=== PATIENT | female | born 1950 | race African-American/Black ===

== ENCOUNTER 2022-08-29 12:12 | Outpatient (CLI) | payer OTHER ==
[2022-08-29 15:31] LABS: Hemoglobin 13.5 g/dL (12.0-15.5); Mean Corpuscular HGB CONC 32.9 g/dL (32.0-36.0); Mean Corpuscular Hemoglobin 32.5 pg (27.0-33.0); Mean Corpuscular Volume 98.6 fl (81.6-98.3); Mean Platelet Volume 11.3 fl (7.4-10.4); Platelet Count 226 10x3/uL (150-450); RBC Distribution Width 12.5 % (11.5-14.5); Red Blood Cell (RBC) Count 4.16 10x6/uL (3.90-5.03); White Blood Cell (WBC) Count 6.6 10x3/uL (3.5-10.5)
[2022-08-29 15:51] LABS: Anion Gap 15 mmol/L (10-20); BUN (Urea Nitrogen) 20 mg/dL (9.8-20.1); Calc. Creatinine Clearance 0 mL/min (70-130); Calcium 9.6 mg/dL (7.8-10.44); Carbon Dioxide 26 mmol/L (23-31); Chloride 105 mmol/L (98-107); Estimated GFR 89; Glucose 83 mg/dL (83-110); Potassium 4.6 mmol/L (3.5-5.1); Sodium 141 mmol/L (136-145)
== END 2022-08-29 12:13 | disposition home or self-care (01) ==
LOC: LABBT 12:12
PROVIDERS: ATTEND Neurological Surgery
DX: Z01.818 Encounter for other preprocedural examination (principal); D49.2 Neoplasm of unspecified behavior of bone, soft tissue, and skin
CPT/HCPCS: 80048; 85027; 93005; 93010

== ENCOUNTER 2022-08-29 13:45 | Inpatient (IN) | payer OTHER ==
[2022-09-05] MEDS ORDERED: fentaNYL PF 100 MCG/2 ML SYRINGE ONE (06:40)
[2022-09-05] MEDS ORDERED: Sodium Chloride 0.9% 100 ML ONE (06:41)
[2022-09-05] MEDS ORDERED: CEFAZOLIN 2 GM VIAL ONE (06:41)
[2022-09-05] MEDS ORDERED: Bacitracin Zinc Ointment 30 gm TUBE ONE (06:51)
[2022-09-05] MEDS ORDERED: Vancomycin 1 GM VIAL ONE (06:51)
[2022-09-05] MEDS ORDERED: Ondansetron PF 4 MG/2 ML Vial ONE (07:33)
[2022-09-05] MEDS ORDERED: Rocuronium Bromide 10 MG/ML (10ML VIAL) ONE (07:33)
[2022-09-05] MEDS ORDERED: PROPOFOL 200 MG/20 ML VIAL ONE (07:33)
[2022-09-05] MEDS ORDERED: PHENYLEPHRINE-NS 100 MCG/ML 10 ML SYRINGE ONE (07:33)
[2022-09-05] MEDS ORDERED: Lidocaine 1% PF 5 ML VIAL ONE (07:33)
[2022-09-05] MEDS ORDERED: Dexamethasone 20 MG/5 ML VIAL ONE (07:33)
[2022-09-05] MEDS ORDERED: Phenylephrine 10 MG/ML VIAL ONE (08:51)
[2022-09-05] MEDS ORDERED: SUGAMMADEX SODIUM 200 MG/2 ML VIAL ONE (09:51)
[2022-09-05] MEDS ORDERED: HYDROcodone/Acetaminophen 10/325 mg Tablet PO PRN (10:36)
[2022-09-05] MEDS ORDERED: diphenhydrAMINE 50 MG CAP PO PRN (10:37)
[2022-09-05] MEDS ORDERED: Mag-Al 1200 mg/1200 mg/30 ML UDCUP PO PRN (10:37)
[2022-09-05] MEDS ORDERED: Morphine 2 MG/ML VIAL SLOW IVP PRN (10:37)
[2022-09-05] MEDS ORDERED: Ondansetron HCl/PF 4 MG/2 ML Vial IVP PRN (10:37)
[2022-09-05] MEDS ORDERED: Ondansetron PF 4 MG/2 ML Vial IVP PRN ×2 (10:37→15:05)
[2022-09-05] MEDS ORDERED: Acetaminophen 325 MG TAB PO PRN (10:37)
[2022-09-05] MEDS ORDERED: Promethazine HCl 25 MG/ML VIAL IM PRN (10:37)
[2022-09-05] MEDS ORDERED: hydrALAZINE 20 MG/ML VIAL ONE (12:24)
[2022-09-05] MEDS: hydrALAZINE 20 MG/ML VIAL SLOW IVP PRN (12:28)
[2022-09-05] MEDS ORDERED: Labetalol HCl 100 MG/20 ML VIAL ONE (13:07)
[2022-09-05] MEDS: Labetalol HCl 100 MG/20 ML VIAL SLOW IVP PRN (13:10)
[2022-09-05] MEDS: tiZANidine HCl 4 MG TAB PO SCH ×4 (13:50→23:58)
[2022-09-05] MEDS: Sodium Chloride 0.9% 1,000 ML IV SCH (13:50)
[2022-09-05] MEDS: CEFAZOLIN 2 GM in Sodium Chloride 0.9% 100 ML IVPB SCH ×2 (14:03→21:44)
[2022-09-05] MEDS ORDERED: Promethazine HCl 12.5 MG in Sodium Chloride 0.9% 50 ML IVPB PRN (15:05)
[2022-09-05] MEDS ORDERED: Electrolyte Replacement Protocol FS SCH (15:45)
[2022-09-05] MEDS ORDERED: Electrolyte Replacement Protocol FS PRN (16:30)
[2022-09-05] MEDS ORDERED: Carvedilol 6.25 MG TAB PO SCH ×3 (17:00→19:15)
[2022-09-05] MEDS ORDERED: Potassium Chloride 20 MEQ TAB PO SCH (17:00)
[2022-09-05] MEDS ORDERED: Metoprolol Tartrate 5 MG/5 ML VIAL IVP SCH ×2 (19:00→21:15)
[2022-09-05] MEDS: Carvedilol 6.25 MG TAB PO SCH ×2 (19:31→19:33)
[2022-09-05] MEDS: Famotidine/PF 20 mg/2ml Vial SLOW IVP SCH (20:00)
[2022-09-05] MEDS: Multivit, Therapeutic 1 TAB PO SCH (20:00)
[2022-09-05] MEDS: Folic Acid 1 MG TAB PO SCH (20:00)
[2022-09-05] MEDS: Thiamine 100 MG TAB PO SCH (20:01)
[2022-09-05 20:12] LABS: #Lymphocytes 0.8 thou/uL (1.20-3.40); #Monocytes 0.9 thou/uL (0.11-0.59); #Neutrophils 13.4 thou/uL (1.40-6.50); %Eosinophils 0.1 % (0.0-10.0); %Monocytes 5.9 % (0.0-10.0); %Neutrophils 89.1 % (42.0-75.0); Hemoglobin 11.7 g/dL (12.0-16.0); Mean Corpuscular HGB CONC 35.4 g/dL (32.0-36.0); Mean Corpuscular Hemoglobin 35.2 pg (27.0-31.0); Mean Corpuscular Volume 99.6 fl (78.0-98.0); Mean Platelet Volume 9.2 fL (7.4-10.4); Platelet Count 183 10x3/uL (130-400); RBC Distribution Width 11.7 % (11.5-14.5); Red Blood Cell (RBC) Count 3.33 mill/uL (4.20-5.40)
[2022-09-05] MEDS: HYDROcodone/Acetaminophen 10/325 mg Tablet PO PRN (20:13)
[2022-09-05 20:34] LABS: Anion Gap 15 mmol/L (10-20); BUN (Urea Nitrogen) 14 mg/dL (9.8-20.1); Calc. Creatinine Clearance 57 mL/min (70-130); Calcium 8.5 mg/dL (7.8-10.44); Carbon Dioxide 20 mmol/L (23-31); Chloride 108 mmol/L (98-107); Estimated GFR 93; Glucose 111 mg/dL (83-110); Magnesium 1.7 mg/dL (1.6-2.6); Potassium 3.8 mmol/L (3.5-5.1); Sodium 139 mmol/L (136-145)
[2022-09-05] MEDS ORDERED: Lisinopril 20 MG TAB PO SCH (21:00)
[2022-09-06] MEDS: Sodium Chloride 0.9% 1,000 ML IV SCH ×2 (01:20→14:34)
[2022-09-06] MEDS: HYDROcodone/Acetaminophen 10/325 mg Tablet PO PRN ×3 (03:47→19:34)
[2022-09-06 04:15] LABS: #Lymphocytes 1.4 thou/uL (1.20-3.40); #Monocytes 1.9 thou/uL (0.11-0.59); #Neutrophils 9.9 thou/uL (1.40-6.50); %Basophils 0.3 % (0.0-1.0); %Eosinophils 0.1 % (0.0-10.0); %Lymphocytes 10.4 % (21.0-51.0); %Monocytes 14.6 % (0.0-10.0); %Neutrophils 74.6 % (42.0-75.0); Hemoglobin 12.1 g/dL (12.0-16.0); Mean Corpuscular HGB CONC 34.8 g/dL (32.0-36.0); Mean Corpuscular Hemoglobin 34.9 pg (27.0-31.0); Platelet Count 156 10x3/uL (130-400); RBC Distribution Width 11.8 % (11.5-14.5); Red Blood Cell (RBC) Count 3.46 mill/uL (4.20-5.40); White Blood Cell (WBC) Count 13.3 10x3/uL (4.8-10.8)
[2022-09-06 04:40] LABS: Anion Gap 14 mmol/L (10-20); BUN (Urea Nitrogen) 12 mg/dL (9.8-20.1); Calc. Creatinine Clearance 59 mL/min (70-130); Calcium 8.4 mg/dL (7.8-10.44); Carbon Dioxide 19 mmol/L (23-31); Chloride 109 mmol/L (98-107); Estimated GFR 94; Glucose 90 mg/dL (83-110); Magnesium 1.8 mg/dL (1.6-2.6); Potassium 3.7 mmol/L (3.5-5.1); Sodium 138 mmol/L (136-145)
[2022-09-06] MEDS: CEFAZOLIN 2 GM in Sodium Chloride 0.9% 100 ML IVPB SCH (05:22)
[2022-09-06] MEDS: Labetalol HCl 100 MG/20 ML VIAL SLOW IVP PRN (05:22)
[2022-09-06] MEDS: tiZANidine HCl 4 MG TAB PO SCH ×4 (05:24→19:38)
[2022-09-06] MEDS ORDERED: Magnesium 2 GM/50 ML(in water) 2 GM in Premix Bag 1 BAG IVPB SCH (05:45)
[2022-09-06] MEDS: Famotidine/PF 20 mg/2ml Vial SLOW IVP SCH ×2 (08:56→20:34)
[2022-09-06] MEDS: Furosemide 20 MG TAB PO SCH (08:57)
[2022-09-06] MEDS: Carvedilol 6.25 MG TAB PO SCH ×3 (08:57→20:34)
[2022-09-06] MEDS: Spironolactone 25 MG TAB PO SCH (08:57)
[2022-09-06] MEDS ORDERED: Lisinopril 20 MG TAB PO SCH ×2 (09:00)
[2022-09-06 14:34] VITALS: BMI 18.6
[2022-09-06] MEDS: Cyanocobalamin (Vitamin B-12) 1,000 MCG TAB PO SCH ×2 (20:34→21:17)
[2022-09-06] MEDS: Folic Acid 1 MG TAB PO SCH ×2 (20:34→21:17)
[2022-09-06] MEDS: Thiamine 100 MG TAB PO SCH ×2 (20:37→21:18)
[2022-09-06] MEDS: Multivit, Therapeutic 1 TAB PO SCH ×2 (20:37→21:17)
[2022-09-07] MEDS: tiZANidine HCl 4 MG TAB PO SCH ×3 (00:03→11:54)
[2022-09-07] MEDS: Sodium Chloride 0.9% 1,000 ML IV SCH (05:56)
[2022-09-07] MEDS: Thiamine 100 MG TAB PO SCH (08:11)
[2022-09-07] MEDS: Lisinopril 20 MG TAB PO SCH (08:11)
[2022-09-07] MEDS: Folic Acid 1 MG TAB PO SCH (08:11)
[2022-09-07] MEDS: Cyanocobalamin (Vitamin B-12) 1,000 MCG TAB PO SCH (08:11)
[2022-09-07] MEDS: Multivit, Therapeutic 1 TAB PO SCH (08:11)
[2022-09-07] MEDS: Famotidine/PF 20 mg/2ml Vial SLOW IVP SCH (08:12)
[2022-09-07] MEDS: Spironolactone 25 MG TAB PO SCH ×2 (08:12→08:14)
[2022-09-07] MEDS: Carvedilol 6.25 MG TAB PO SCH ×2 (08:12→18:30)
[2022-09-07] MEDS ORDERED: Polyethylene Glycol 3350 17 GM Packet PO PRN (10:13)
[2022-09-07] MEDS ORDERED: Senokot S 8.6-50 MG TAB PO SCH (10:15)
[2022-09-07] MEDS: hydrALAZINE 20 MG/ML VIAL SLOW IVP PRN (18:50)
[2022-09-07] MEDS: Senokot S 8.6-50 MG TAB PO SCH (21:50)
[2022-09-07] MEDS: Famotidine 20 MG TAB PO SCH (21:50)
[2022-09-08] MEDS ORDERED: Diltiazem 125 MG in Sodium Chloride 0.9% 100 ML IVPB SCH (05:00)
[2022-09-08] MEDS ORDERED: Diltiazem HCl 125 MG, Admixture Fee 1 EACH in Sodium Chloride 0.9% 100 ML IVPB SCH ×2 (05:15→06:00)
[2022-09-08] MEDS: Senokot S 8.6-50 MG TAB PO SCH ×2 (08:36→20:53)
[2022-09-08] MEDS: Spironolactone 25 MG TAB PO SCH (08:36)
[2022-09-08] MEDS: Furosemide 20 MG TAB PO SCH (08:36)
[2022-09-08] MEDS: Multivit, Therapeutic 1 TAB PO SCH (08:36)
[2022-09-08] MEDS: Thiamine 100 MG TAB PO SCH (08:36)
[2022-09-08] MEDS: Lisinopril 20 MG TAB PO SCH (08:36)
[2022-09-08] MEDS: Folic Acid 1 MG TAB PO SCH (08:36)
[2022-09-08] MEDS: Famotidine 20 MG TAB PO SCH ×2 (08:36→20:52)
[2022-09-08] MEDS: Cyanocobalamin (Vitamin B-12) 1,000 MCG TAB PO SCH (08:37)
[2022-09-08] MEDS: Carvedilol 6.25 MG TAB PO SCH ×2 (08:37→15:53)
[2022-09-08 08:52] LABS: #Monocytes 1.3 thou/uL (0.11-0.59); #Neutrophils 9.7 thou/uL (1.40-6.50); %Basophils 0.2 % (0.0-1.0); %Eosinophils 0.1 % (0.0-10.0); %Lymphocytes 8.4 % (21.0-51.0); %Monocytes 10.9 % (0.0-10.0); %Neutrophils 80.4 % (42.0-75.0); Hemoglobin 13.7 g/dL (12.0-16.0); Mean Corpuscular Hemoglobin 33.8 pg (27.0-31.0); Mean Corpuscular Volume 99.3 fl (78.0-98.0); Mean Platelet Volume 9.3 fL (7.4-10.4); Platelet Count 203 10x3/uL (130-400); RBC Distribution Width 11.8 % (11.5-14.5); Red Blood Cell (RBC) Count 4.06 mill/uL (4.20-5.40); White Blood Cell (WBC) Count 12.1 10x3/uL (4.8-10.8)
[2022-09-08 09:02] LABS: ALT (SGPT) 9 U/L (8-55); AST (SGOT) 24 U/L (5-34); Albumin 3.8 g/dL (3.4-4.8); Alkaline Phosphatase 52 U/L (40-110); Anion Gap 15 mmol/L (10-20); BUN (Urea Nitrogen) 12 mg/dL (9.8-20.1); Bilirubin, Total 0.6 mg/dL (0.2-1.2); Calc. Creatinine Clearance 59 mL/min (70-130); Carbon Dioxide 21 mmol/L (23-31); Chloride 108 mmol/L (98-107); Estimated GFR 94; Globulin 3.3 g/dL (2.4-3.5); Glucose 99 mg/dL (83-110); Phosphorus 3.2 mg/dL (2.3-4.7); Potassium 3.2 mmol/L (3.5-5.1); Protein, Total 7.1 g/dL (5.8-8.1); Sodium 141 mmol/L (136-145)
[2022-09-08] MEDS ORDERED: Electrolyte Replacement Protocol 1 EACH FS SCH (09:30)
[2022-09-08] MEDS ORDERED: Magnesium 2 GM/50 ML(in water) 2 GM in Premix Bag 1 BAG IVPB SCH (10:15)
[2022-09-08] MEDS ORDERED: Potassium Bicarbonate/Cit Ac 20 MEQ TAB PO SCH (10:15)
[2022-09-08] MEDS ORDERED: Digoxin 0.5 MG/2 ML AMP SLOW IVP SCH ×2 (15:15→22:00)
[2022-09-08] MEDS: Atorvastatin Calcium 40 MG TAB PO SCH (20:53)
[2022-09-08] MEDS: Polyethylene Glycol 3350 17 GM Packet PO SCH (20:53)
[2022-09-08] MEDS: Diltiazem HCl 125 MG, Admixture Fee 1 EACH in Sodium Chloride 0.9% 100 ML IVPB SCH ×2 (21:18→21:34)
[2022-09-09] MEDS: Thiamine 100 MG TAB PO SCH ×2 (08:01→08:02)
[2022-09-09] MEDS: Furosemide 20 MG TAB PO SCH (08:01)
[2022-09-09] MEDS: Carvedilol 6.25 MG TAB PO SCH ×2 (08:02→17:07)
[2022-09-09] MEDS: Folic Acid 1 MG TAB PO SCH (08:02)
[2022-09-09] MEDS: Senokot S 8.6-50 MG TAB PO SCH ×2 (08:02→20:00)
[2022-09-09] MEDS: Lisinopril 20 MG TAB PO SCH ×2 (08:02→20:00)
[2022-09-09] MEDS: Multivit, Therapeutic 1 TAB PO SCH (08:02)
[2022-09-09] MEDS: Famotidine 20 MG TAB PO SCH ×2 (08:02→20:00)
[2022-09-09] MEDS: Cyanocobalamin (Vitamin B-12) 1,000 MCG TAB PO SCH (08:03)
[2022-09-09] MEDS: Spironolactone 25 MG TAB PO SCH (08:03)
[2022-09-09] MEDS ORDERED: Digoxin 0.25 MG TAB PO SCH (09:00)
[2022-09-09] MEDS ORDERED: Lisinopril 20 MG TAB PO SCH (10:00)
[2022-09-09] MEDS ORDERED: Amiodarone 200 MG TAB PO SCH (10:15)
[2022-09-09] MEDS ORDERED: Lorazepam 2 MG/ML VIAL SLOW IVP SCH (16:15)
[2022-09-09] MEDS: Potassium Chloride 10 MEQ TAB PO SCH (17:07)
[2022-09-09] MEDS: Atorvastatin Calcium 40 MG TAB PO SCH (20:00)
[2022-09-09] MEDS: Polyethylene Glycol 3350 17 GM Packet PO SCH (20:00)
[2022-09-09] MEDS: Amiodarone 200 MG TAB PO SCH (20:00)
[2022-09-10 04:30] LABS: Anion Gap 13 mmol/L (10-20); BUN (Urea Nitrogen) 26 mg/dL (9.8-20.1); Calc. Creatinine Clearance 58 mL/min (70-130); Calcium 8.8 mg/dL (7.8-10.44); Carbon Dioxide 24 mmol/L (23-31); Chloride 107 mmol/L (98-107); Estimated GFR 94; Glucose 94 mg/dL (83-110); Potassium 3.5 mmol/L (3.5-5.1); Sodium 140 mmol/L (136-145)
[2022-09-10 04:33] LABS: Digoxin 1.48 ng/mL (0.8-2.0)
[2022-09-10] MEDS: hydrALAZINE 20 MG/ML VIAL SLOW IVP PRN ×2 (06:11→16:15)
[2022-09-10] MEDS ORDERED: Potassium Chloride 20 MEQ TAB PO SCH (08:00)
[2022-09-10] MEDS: Spironolactone 25 MG TAB PO SCH (08:26)
[2022-09-10] MEDS: Amiodarone 200 MG TAB PO SCH ×2 (08:27→20:01)
[2022-09-10] MEDS: Senokot S 8.6-50 MG TAB PO SCH ×2 (08:28→20:01)
[2022-09-10] MEDS: Folic Acid 1 MG TAB PO SCH (08:29)
[2022-09-10] MEDS: Cyanocobalamin (Vitamin B-12) 1,000 MCG TAB PO SCH (08:29)
[2022-09-10] MEDS: Lisinopril 20 MG TAB PO SCH ×2 (08:30→20:01)
[2022-09-10] MEDS: Carvedilol 6.25 MG TAB PO SCH ×3 (08:32→20:01)
[2022-09-10] MEDS: Multivit, Therapeutic 1 TAB PO SCH (08:33)
[2022-09-10] MEDS: Famotidine 20 MG TAB PO SCH ×2 (08:33→20:01)
[2022-09-10] MEDS: Furosemide 20 MG TAB PO SCH (08:34)
[2022-09-10] MEDS: Potassium Chloride 10 MEQ TAB PO SCH ×2 (08:38→17:32)
[2022-09-10] MEDS ORDERED: Digoxin 0.125 MG TAB PO SCH (09:00)
[2022-09-10] MEDS: Labetalol HCl 100 MG/20 ML VIAL SLOW IVP PRN (13:19)
[2022-09-10] MEDS: Atorvastatin Calcium 40 MG TAB PO SCH (20:01)
[2022-09-10] MEDS: Polyethylene Glycol 3350 17 GM Packet PO SCH (20:02)
[2022-09-11] MEDS: hydrALAZINE 20 MG/ML VIAL SLOW IVP PRN (04:05)
[2022-09-11 08:09] LABS: Anion Gap 17 mmol/L (10-20); BUN (Urea Nitrogen) 26 mg/dL (9.8-20.1); Calc. Creatinine Clearance 57 mL/min (70-130); Calcium 8.9 mg/dL (7.8-10.44); Carbon Dioxide 22 mmol/L (23-31); Chloride 107 mmol/L (98-107); Estimated GFR 93; Glucose 101 mg/dL (83-110); Potassium 3.6 mmol/L (3.5-5.1); Sodium 142 mmol/L (136-145)
[2022-09-11] MEDS ORDERED: Aspirin 325 MG TAB PO SCH (09:00)
[2022-09-11] MEDS: Amiodarone 200 MG TAB PO SCH ×2 (09:27→20:46)
[2022-09-11] MEDS: Lisinopril 20 MG TAB PO SCH ×2 (09:27→20:46)
[2022-09-11] MEDS: Spironolactone 25 MG TAB PO SCH (09:28)
[2022-09-11] MEDS: Carvedilol 6.25 MG TAB PO SCH ×3 (09:28→20:46)
[2022-09-11] MEDS: Furosemide 20 MG TAB PO SCH (09:28)
[2022-09-11] MEDS: Folic Acid 1 MG TAB PO SCH (09:29)
[2022-09-11] MEDS: Famotidine 20 MG TAB PO SCH ×2 (09:29→20:45)
[2022-09-11] MEDS: Multivit, Therapeutic 1 TAB PO SCH (09:29)
[2022-09-11] MEDS: Senokot S 8.6-50 MG TAB PO SCH ×2 (09:29→20:46)
[2022-09-11] MEDS: Cyanocobalamin (Vitamin B-12) 1,000 MCG TAB PO SCH (09:29)
[2022-09-11] MEDS: Aspirin 81 mg Enteric Coated Tablet PO SCH (09:30)
[2022-09-11] MEDS: Thiamine 100 MG TAB PO SCH (09:30)
[2022-09-11] MEDS: Potassium Chloride 10 MEQ TAB PO SCH ×2 (09:30→17:52)
[2022-09-11] MEDS: Polyethylene Glycol 3350 17 GM Packet PO SCH (20:45)
[2022-09-11] MEDS: Atorvastatin Calcium 40 MG TAB PO SCH (20:46)
[2022-09-12] MEDS: hydrALAZINE 20 MG/ML VIAL SLOW IVP PRN ×2 (05:03→17:52)
[2022-09-12] MEDS: Famotidine 20 MG TAB PO SCH ×2 (09:33→23:10)
[2022-09-12] MEDS: Multivit, Therapeutic 1 TAB PO SCH (09:33)
[2022-09-12] MEDS: Potassium Chloride 10 MEQ TAB PO SCH ×2 (09:33→16:02)
[2022-09-12] MEDS: Spironolactone 25 MG TAB PO SCH (09:33)
[2022-09-12] MEDS: Folic Acid 1 MG TAB PO SCH (09:33)
[2022-09-12] MEDS: Thiamine 100 MG TAB PO SCH (09:33)
[2022-09-12] MEDS: Amiodarone 200 MG TAB PO SCH ×2 (09:33→23:10)
[2022-09-12] MEDS: Senokot S 8.6-50 MG TAB PO SCH ×2 (09:33→23:10)
[2022-09-12] MEDS: Lisinopril 20 MG TAB PO SCH ×2 (09:34→23:10)
[2022-09-12] MEDS: Carvedilol 6.25 MG TAB PO SCH ×2 (09:34→16:02)
[2022-09-12] MEDS: Cyanocobalamin (Vitamin B-12) 1,000 MCG TAB PO SCH (09:34)
[2022-09-12] MEDS: Aspirin 81 mg Enteric Coated Tablet PO SCH (09:34)
[2022-09-12] MEDS: Furosemide 20 MG TAB PO SCH (09:34)
[2022-09-12] MEDS: Polyethylene Glycol 3350 17 GM Packet PO SCH (23:09)
[2022-09-12] MEDS: Atorvastatin Calcium 40 MG TAB PO SCH (23:10)
[2022-09-13] MEDS: hydrALAZINE 20 MG/ML VIAL SLOW IVP PRN (04:37)
[2022-09-13] MEDS: Folic Acid 1 MG TAB PO SCH (09:21)
[2022-09-13] MEDS: Aspirin 81 mg Enteric Coated Tablet PO SCH (09:21)
[2022-09-13] MEDS: Spironolactone 25 MG TAB PO SCH (09:22)
[2022-09-13] MEDS: Famotidine 20 MG TAB PO SCH ×2 (09:22→20:40)
[2022-09-13] MEDS: Senokot S 8.6-50 MG TAB PO SCH ×2 (09:22→20:39)
[2022-09-13] MEDS: Amiodarone 200 MG TAB PO SCH ×2 (09:22→20:39)
[2022-09-13] MEDS: Potassium Chloride 10 MEQ TAB PO SCH ×2 (09:22→17:23)
[2022-09-13] MEDS: Thiamine 100 MG TAB PO SCH (09:23)
[2022-09-13] MEDS: Lisinopril 20 MG TAB PO SCH ×3 (09:23→20:54)
[2022-09-13] MEDS: Furosemide 20 MG TAB PO SCH (09:23)
[2022-09-13] MEDS: Multivit, Therapeutic 1 TAB PO SCH (09:23)
[2022-09-13] MEDS: Carvedilol 25 MG TAB PO SCH ×2 (09:24→17:23)
[2022-09-13] MEDS: Cyanocobalamin (Vitamin B-12) 1,000 MCG TAB PO SCH (09:24)
[2022-09-13] MEDS: Atorvastatin Calcium 40 MG TAB PO SCH (20:40)
[2022-09-13] MEDS: Polyethylene Glycol 3350 17 GM Packet PO SCH ×2 (20:40→20:46)
[2022-09-14] MEDS: Lisinopril 20 MG TAB PO SCH (08:40)
[2022-09-14] MEDS: Folic Acid 1 MG TAB PO SCH (08:40)
[2022-09-14] MEDS: Spironolactone 25 MG TAB PO SCH (08:40)
[2022-09-14] MEDS: Amiodarone 200 MG TAB PO SCH (08:40)
[2022-09-14] MEDS: Aspirin 81 mg Enteric Coated Tablet PO SCH (08:41)
[2022-09-14] MEDS: Furosemide 20 MG TAB PO SCH (08:41)
[2022-09-14] MEDS: Multivit, Therapeutic 1 TAB PO SCH (08:41)
[2022-09-14] MEDS: Senokot S 8.6-50 MG TAB PO SCH (08:41)
[2022-09-14] MEDS: Famotidine 20 MG TAB PO SCH (08:41)
[2022-09-14] MEDS: Carvedilol 25 MG TAB PO SCH (08:41)
[2022-09-14] MEDS: Cyanocobalamin (Vitamin B-12) 1,000 MCG TAB PO SCH (08:41)
[2022-09-14] MEDS: Potassium Chloride 10 MEQ TAB PO SCH (08:41)
[2022-09-14] MEDS: Thiamine 100 MG TAB PO SCH (08:41)
[2022-09-14 11:30] VITALS: TEMP 97.6
[2022-09-14 13:44] VITALS: BP 121/57
[2022-09-24] MEDS ORDERED: Amiodarone 200 MG TAB PO SCH (09:00)
[2022-10-08] MEDS ORDERED: Amiodarone 200 MG TAB PO SCH (09:00)
== END 2022-09-14 14:00 | DRG 519 ==
LOC: SURG A 09-05 05:58 → CCU 09-05 13:46 → SURG B 09-06 13:14 → IMCU/EMU 09-08 06:46 → 2NO 09-11 10:14
PROVIDERS: ADMIT Internal Medicine; ATTEND Neurological Surgery
PROC: 00BW0ZZ Excision of Cervical Spinal Cord, Open Approach (ICD-10-PCS; principal; 2022-09-05)
DX: D36.10 Benign neoplasm of peripheral nerves and autonomic nervous system, unspecified (principal); G95.29 Other cord compression; I42.8 Other cardiomyopathies; I50.22 Chronic systolic (congestive) heart failure; I25.10 Atherosclerotic heart disease of native coronary artery without angina pectoris; I44.7 Left bundle-branch block, unspecified; I10 Essential (primary) hypertension; E78.5 Hyperlipidemia, unspecified; I08.3 Combined rheumatic disorders of mitral, aortic and tricuspid valves; F17.210 Nicotine dependence, cigarettes, uncomplicated; E83.42 Hypomagnesemia; K59.00 Constipation, unspecified; I48.91 Unspecified atrial fibrillation; R33.9 Retention of urine, unspecified; Q85.00 Neurofibromatosis, unspecified; Z79.899 Other long term (current) drug therapy; Z98.49 Cataract extraction status, unspecified eye; Z82.49 Family history of ischemic heart disease and other diseases of the circulatory system; Z83.3 Family history of diabetes mellitus
CPT/HCPCS: 36415; 80048; 80053; 80162; 83735; 84100; 85025; 87086; 88307; 88341; 88342; 93005; 93010; 93306; C1713; C1776; C1889; J0360; J1100; J1160; J2370; J2405; J2704; J3370; J3475; J3490; J7050; S0028